=== PATIENT | male | born 1970 | race Caucasian/White ===

== ENCOUNTER 2021-09-27 11:50 | Inpatient (IN) ==
[2021-09-27 12:36] LABS: Basophils % 0.7 %
[2021-09-27 12:38] LABS: Eosinophils % 0.9 %; Hematocrit 35.9 % (37.5-50.1); Hemoglobin 12.9 g/dL (12.9-16.9); Immature Granulocytes % 0.5 % (0-4); Immature Platelets 2.3 % (1.1-6.1); Lymphocytes # 0.6 K/mcL (0.6-4.6); Lymphocytes % 14.3 %; Mean Corpuscular HGB Conc 35.9 g/dL (31.6-35.5); Mean Corpuscular Hemoglobin 34.9 pg (28.0-33.3); Mean Platelet Volume 10.1 fL (9.4-12.4); Monocytes # 0.5 K/mcL (0.0-1.3); Monocytes % 11.8 %; Neutrophils # 3.1 K/mcL (1.6-8.9); Red Cell Distribution Width 13.5 % (11.5-14.5); Segmented Neutrophils % 71.8 %; White Blood Count 4.3 K/mcL (4.3-11.1)
[2021-09-27 12:42] LABS: Platelet Count 72 K/mcL (140-400)
[2021-09-27 12:48] LABS: Activated Partial Thrombo Time 39.7 Seconds (26.0-36.0)
[2021-09-27 12:56] LABS: Alanine Aminotransferase 22 Units/L (7-52); Albumin 2.6 g/dL (3.5-5.7); Albumin/Globulin Ratio 0.7 (1.1-2.2); Alkaline Phosphatase 120 Units/L (34-104); Aspartate Amino Transferase 32 Units/L (13-39); BUN/Creatinine Ratio 15 (6-26); Bilirubin,Direct 0.7 mg/dL (0.0-0.2); Bilirubin,Indirect 1.9 mg/dL (0.0-1.0); Bilirubin,Total 2.6 mg/dL (0.3-1.0); Blood Urea Nitrogen 13 mg/dL (6-20); Carbon Dioxide 27 mEq/L (23-29); Chloride 105 mEq/L (98-107); Creatine Kinase 43 Units/L (30-223); Ethanol < 10 mg/dL (Less than 10); Globulin 3.7 g/dL (2.4-3.5); Glucose 164 mg/dL (70-105); Osmolality,Calculated 288 (280-300); Sodium 137 mEq/L (136-145); Total Protein 6.3 g/dL (6.4-8.9); Troponin I < 0.03 ng/mL (< 0.04); eGFR For African Americans > 60 (> 60); eGFR For Non-African Americans > 60 (> 60)
[2021-09-27] MEDS ORDERED: Ringers Solution, Lactated 1,000 ML IVC ONE (13:06)
[2021-09-27 13:13] LABS: Bilirubin,Urine Negative (Negative); Blood,Urine Negative (Negative); Clarity,Urine Clear (Clear); Color,Urine Yellow (Yellow); Glucose,Urine (UA) Normal (Normal); Ketones,Urine Negative (Negative); Leukocyte Esterase,Urine Negative (Negative); Nitrite,Urine Negative (Negative); PH,Urine 6.5 pH Units (5.0-8.0); Protein,Urine Negative (Neg-Trace); Specific Gravity,Urine 1.021 (1.010-1.025)
[2021-09-27 13:20] LABS: INR 1.7
[2021-09-27] MEDS ORDERED: Isovue-370 500 ML BOTTLE IVP ONE (13:48)
[2021-09-27 13:53] LABS: Amphetamine Screen,Urine Negative ng/mL (Cutoff=1000); Barbiturate Screen,Urine Negative ng/mL (Cutoff=200); Benzodiazepines Screen,Urine Negative ng/mL (Cutoff=200); Cannabinoid Screen,Urine Negative ng/mL (Cutoff = 50); Cocaine Screen,Urine Negative ng/mL (Cutoff= 300); Opiate Screen,Urine Negative ng/mL (Cutoff=300); Phencyclidine Screen,Urine Negative ng/mL (Cutoff=25)
[2021-09-27] MEDS ORDERED: Ringers Solution, Lactated 500 ML IVC ONE ×2 (16:31→20:30)
[2021-09-27] MEDS ORDERED: Lactulose 200 GM, Sodium Chloride IRRigation 700 ML RC ONE (16:46)
[2021-09-27 19:11] LABS: Acetaminophen < 10 mcg/mL (10-20); Salicylate < 2.5 mg/dL (15.0-30.0); Valproate 19 mcg/mL (50-100)
[2021-09-27] MEDS ORDERED: Albumin 25% 25gram/100mL 25 GM/100 ML IV.SOLN IVPB ONE (20:17)
[2021-09-28 03:43] LABS: Hemoglobin 11.4 g/dL (12.9-16.9); Red Cell Distribution Width 13.2 % (11.5-14.5)
[2021-09-28 03:45] LABS: Basophils % 0.4 %; Eosinophils # 0.1 K/mcL (0.0-0.6); Eosinophils % 1.2 %; Hematocrit 31.7 % (37.5-50.1); Immature Granulocytes % 0.4 % (0-4); Immature Platelets 3.3 % (1.1-6.1); Lymphocytes # 1.8 K/mcL (0.6-4.6); Lymphocytes % 19.6 %; Mean Corpuscular Hemoglobin 35.5 pg (28.0-33.3); Mean Corpuscular Volume 98.8 fL (83.0-100.0); Monocytes # 1.2 K/mcL (0.0-1.3); Monocytes % 12.6 %; Red Blood Count 3.21 M/mcL (4.19-5.50); Segmented Neutrophils % 65.8 %; White Blood Count 9.2 K/mcL (4.3-11.1)
[2021-09-28 03:53] LABS: Alanine Aminotransferase 18 Units/L (7-52); Albumin 2.7 g/dL (3.5-5.7); Alkaline Phosphatase 91 Units/L (34-104); Aspartate Amino Transferase 26 Units/L (13-39); BUN/Creatinine Ratio 18 (6-26); Bilirubin,Total 2.9 mg/dL (0.3-1.0); Blood Urea Nitrogen 17 mg/dL (6-20); Calcium 9.2 mg/dL (8.6-10.3); Carbon Dioxide 28 mEq/L (23-29); Chloride 104 mEq/L (98-107); Glucose 119 mg/dL (70-105); Osmolality,Calculated 289 (280-300); Potassium 4.4 mEq/L (3.5-5.1); Sodium 138 mEq/L (136-145); Total Protein 5.7 g/dL (6.4-8.9); eGFR For African Americans > 60 (> 60); eGFR For Non-African Americans > 60 (> 60)
[2021-09-28 03:54] LABS: Albumin/Globulin Ratio 0.9 (1.1-2.2)
[2021-09-28 03:56] LABS: Neutrophils # 6.1 K/mcL (1.6-8.9); Platelet Count 62 K/mcL (140-400)
[2021-09-28] MEDS: *HR* Enoxaparin 40 MG/0.4 ML SYRINGE SQ SCH (05:14)
[2021-09-28 10:50] LABS: Thyroid Stimulating Hormone 1.018 mcIU/mL (0.340-5.600)
[2021-09-28] MEDS ORDERED: Lactulose Oral Soln 20 GM/30 ML UDC PO PRN (12:11)
[2021-09-28] MEDS ORDERED: Ondansetron ODT 4 MG TAB.RAPDIS PO PRN (12:11)
[2021-09-28] MEDS ORDERED: D5% in Water 1,000 ML IVC PRN (12:18)
[2021-09-28] MEDS ORDERED: Dextrose 4 GM Chewable Tablets PO PRN ×2 (12:18)
[2021-09-28] MEDS ORDERED: *HR* Dextrose 50 % in Water (Syg) 50 ML SYRINGE IVP PRN (12:18)
[2021-09-28] MEDS: Lactulose Oral Soln 20 GM/30 ML UDC PO SCH ×3 (12:42→20:51)
[2021-09-28] MEDS: Divalproex Sodium 125 MG Sprinkle Capsule (DR) PO SCH ×2 (12:42→20:51)
[2021-09-28] MEDS: Magnesium Oxide 400 MG TABLET PO SCH ×2 (15:17→20:51)
[2021-09-28] MEDS: Insulin LISPRO 300 UNITS/3 ML VIAL SUBQ SCH ×2 (15:43→21:12)
[2021-09-28] MEDS: polyethylene glycoL 3350 17 GM POWD.PACK PO SCH (20:52)
[2021-09-28] MEDS ORDERED: Insulin DETEMIR 100 UNIT/ML X5UNITS SUBQ SCH (21:00)
[2021-09-29] MEDS: *HR* Enoxaparin 40 MG/0.4 ML SYRINGE SQ SCH (05:25)
[2021-09-29 06:15] LABS: Immature Granulocytes % 0.2 % (0-4)
[2021-09-29 06:17] LABS: Basophils % 0.9 %; Eosinophils # 0.2 K/mcL (0.0-0.6); Eosinophils % 3.5 %; Hematocrit 33.2 % (37.5-50.1); Hemoglobin 11.6 g/dL (12.9-16.9); Immature Platelets 3.6 % (1.1-6.1); Lymphocytes # 1.8 K/mcL (0.6-4.6); Mean Corpuscular HGB Conc 34.9 g/dL (31.6-35.5); Mean Corpuscular Hemoglobin 35.2 pg (28.0-33.3); Mean Corpuscular Volume 100.6 fL (83.0-100.0); Mean Platelet Volume 10.6 fL (9.4-12.4); Monocytes # 0.7 K/mcL (0.0-1.3); Monocytes % 16.3 %; Neutrophils # 1.8 K/mcL (1.6-8.9); Red Cell Distribution Width 13.5 % (11.5-14.5); Segmented Neutrophils % 39.1 %; White Blood Count 4.5 K/mcL (4.3-11.1)
[2021-09-29 06:19] LABS: Platelet Count 56 K/mcL (140-400)
[2021-09-29 06:22] LABS: INR 1.7; Prothrombin Time 19.3 Seconds (9.4-12.1)
[2021-09-29 06:44] LABS: Alanine Aminotransferase 17 Units/L (7-52); Albumin 2.7 g/dL (3.5-5.7); Albumin/Globulin Ratio 0.9 (1.1-2.2); Alkaline Phosphatase 93 Units/L (34-104); Aspartate Amino Transferase 27 Units/L (13-39); BUN/Creatinine Ratio 19 (6-26); Bilirubin,Total 2.2 mg/dL (0.3-1.0); Blood Urea Nitrogen 14 mg/dL (6-20); Calcium 9.1 mg/dL (8.6-10.3); Carbon Dioxide 30 mEq/L (23-29); Chloride 106 mEq/L (98-107); Glucose 64 mg/dL (70-105); Magnesium 1.4 mg/dL (1.6-2.6); Osmolality,Calculated 289 (280-300); Sodium 140 mEq/L (136-145); Total Protein 5.7 g/dL (6.4-8.9); eGFR For African Americans > 60 (> 60); eGFR For Non-African Americans > 60 (> 60)
[2021-09-29] MEDS: Insulin LISPRO 300 UNITS/3 ML VIAL SUBQ SCH ×4 (07:46→20:45)
[2021-09-29] MEDS: Furosemide 20 MG TABLET PO SCH (10:29)
[2021-09-29] MEDS: polyethylene glycoL 3350 17 GM POWD.PACK PO SCH ×2 (10:29→20:54)
[2021-09-29] MEDS: Divalproex Sodium 125 MG Sprinkle Capsule (DR) PO SCH ×2 (10:29→20:49)
[2021-09-29] MEDS: Magnesium Oxide 400 MG TABLET PO SCH ×3 (10:29→20:49)
[2021-09-29] MEDS: Lactulose Oral Soln 20 GM/30 ML UDC PO SCH ×4 (10:29→20:49)
[2021-09-29] MEDS: FLUoxetine 20 MG CAPSULE PO SCH (10:29)
[2021-09-30 05:24] LABS: Eosinophils % 6.2 %; Hematocrit 32.9 % (37.5-50.1); Hemoglobin 11.6 g/dL (12.9-16.9); Immature Granulocytes % 0.5 % (0-4); Immature Platelets 2.5 % (1.1-6.1); Lymphocytes % 36.8 %; Mean Corpuscular HGB Conc 35.3 g/dL (31.6-35.5); Mean Corpuscular Hemoglobin 34.7 pg (28.0-33.3); Mean Corpuscular Volume 98.5 fL (83.0-100.0); Mean Platelet Volume 10.6 fL (9.4-12.4); Monocytes % 17.6 %; Red Blood Count 3.34 M/mcL (4.19-5.50); Red Cell Distribution Width 13.4 % (11.5-14.5); Segmented Neutrophils % 38.2 %; White Blood Count 4.2 K/mcL (4.3-11.1)
[2021-09-30] MEDS: *HR* Enoxaparin 40 MG/0.4 ML SYRINGE SQ SCH (05:24)
[2021-09-30 05:25] LABS: Basophils % 0.7 %; Eosinophils # 0.3 K/mcL (0.0-0.6); Lymphocytes # 1.6 K/mcL (0.6-4.6); Monocytes # 0.7 K/mcL (0.0-1.3); Neutrophils # 1.6 K/mcL (1.6-8.9)
[2021-09-30 05:32] LABS: INR 1.7; Prothrombin Time 18.5 Seconds (9.4-12.1)
[2021-09-30 05:33] LABS: Platelet Count 55 K/mcL (140-400)
[2021-09-30 05:34] LABS: Platelet Estimate Decreased (Normal)
[2021-09-30 05:43] LABS: Alanine Aminotransferase 18 Units/L (7-52); Albumin 2.5 g/dL (3.5-5.7); Albumin/Globulin Ratio 0.8 (1.1-2.2); Alkaline Phosphatase 111 Units/L (34-104); Aspartate Amino Transferase 28 Units/L (13-39); BUN/Creatinine Ratio 14 (6-26); Bilirubin,Total 1.8 mg/dL (0.3-1.0); Blood Urea Nitrogen 9 mg/dL (6-20); Carbon Dioxide 30 mEq/L (23-29); Chloride 106 mEq/L (98-107); Globulin 3.2 g/dL (2.4-3.5); Glucose 176 mg/dL (70-105); Magnesium 1.5 mg/dL (1.6-2.6); Osmolality,Calculated 289 (280-300); Potassium 4.3 mEq/L (3.5-5.1); Sodium 138 mEq/L (136-145); Total Protein 5.7 g/dL (6.4-8.9); eGFR For African Americans > 60 (> 60); eGFR For Non-African Americans > 60 (> 60)
[2021-09-30] MEDS: Insulin LISPRO 300 UNITS/3 ML VIAL SUBQ SCH ×4 (07:53→20:14)
[2021-09-30] MEDS: Lactulose Oral Soln 20 GM/30 ML UDC PO SCH ×4 (08:21→20:14)
[2021-09-30] MEDS: Magnesium Oxide 400 MG TABLET PO SCH ×3 (08:21→20:14)
[2021-09-30] MEDS: polyethylene glycoL 3350 17 GM POWD.PACK PO SCH ×2 (08:21→20:15)
[2021-09-30] MEDS: Divalproex Sodium 125 MG Sprinkle Capsule (DR) PO SCH (08:22)
[2021-09-30] MEDS: Furosemide 20 MG TABLET PO SCH (08:22)
[2021-09-30] MEDS: FLUoxetine 20 MG CAPSULE PO SCH (08:22)
[2021-10-01 01:14] LABS: Eosinophils % 7.1 %; Immature Granulocytes % 0.2 % (0-4); Mean Corpuscular HGB Conc 35.1 g/dL (31.6-35.5)
[2021-10-01 01:16] LABS: Basophils % 0.7 %; Eosinophils # 0.3 K/mcL (0.0-0.6); Hematocrit 34.8 % (37.5-50.1); Hemoglobin 12.2 g/dL (12.9-16.9); Lymphocytes # 1.6 K/mcL (0.6-4.6); Lymphocytes % 34.5 %; Mean Corpuscular Hemoglobin 34.9 pg (28.0-33.3); Mean Corpuscular Volume 99.4 fL (83.0-100.0); Mean Platelet Volume 10.4 fL (9.4-12.4); Monocytes # 0.7 K/mcL (0.0-1.3); Monocytes % 16.5 %; Red Cell Distribution Width 13.4 % (11.5-14.5); White Blood Count 4.5 K/mcL (4.3-11.1)
[2021-10-01 01:21] LABS: INR 1.7; Prothrombin Time 18.7 Seconds (9.4-12.1)
[2021-10-01 01:34] LABS: Alanine Aminotransferase 20 Units/L (7-52); Albumin 2.7 g/dL (3.5-5.7); Albumin/Globulin Ratio 0.8 (1.1-2.2); Alkaline Phosphatase 126 Units/L (34-104); Aspartate Amino Transferase 30 Units/L (13-39); BUN/Creatinine Ratio 11 (6-26); Bilirubin,Total 1.9 mg/dL (0.3-1.0); Blood Urea Nitrogen 8 mg/dL (6-20); Calcium 9.2 mg/dL (8.6-10.3); Carbon Dioxide 29 mEq/L (23-29); Chloride 103 mEq/L (98-107); Globulin 3.4 g/dL (2.4-3.5); Glucose 245 mg/dL (70-105); Magnesium 1.4 mg/dL (1.6-2.6); Osmolality,Calculated 290 (280-300); Sodium 137 mEq/L (136-145); Total Protein 6.1 g/dL (6.4-8.9); eGFR For African Americans > 60 (> 60); eGFR For Non-African Americans > 60 (> 60)
[2021-10-01 01:56] LABS: Neutrophils # 1.9 K/mcL (1.6-8.9); Platelet Count 67 K/mcL (140-400)
[2021-10-01] MEDS: *HR* Enoxaparin 40 MG/0.4 ML SYRINGE SQ SCH (05:26)
[2021-10-01] MEDS: Insulin LISPRO 300 UNITS/3 ML VIAL SUBQ SCH ×4 (08:13→21:41)
[2021-10-01] MEDS: Lactulose Oral Soln 20 GM/30 ML UDC PO SCH ×4 (08:13→21:45)
[2021-10-01] MEDS: polyethylene glycoL 3350 17 GM POWD.PACK PO SCH ×2 (08:14→21:46)
[2021-10-01] MEDS: Furosemide 20 MG TABLET PO SCH (08:14)
[2021-10-01] MEDS: Magnesium Oxide 400 MG TABLET PO SCH ×3 (08:14→21:46)
[2021-10-01] MEDS: FLUoxetine HCl 10 MG CAPSULE PO SCH (08:36)
[2021-10-01] MEDS ORDERED: Lactulose 200 GM, Sodium Chloride IRRigation 700 ML RC ONE (10:54)
[2021-10-02 01:15] LABS: Immature Granulocytes % 0.2 % (0-4); Red Cell Distribution Width 13.6 % (11.5-14.5)
[2021-10-02 01:17] LABS: Basophils % 0.6 %; Eosinophils # 0.5 K/mcL (0.0-0.6); Eosinophils % 9.9 %; Hematocrit 38.4 % (37.5-50.1); Hemoglobin 13.6 g/dL (12.9-16.9); Immature Platelets 5.2 % (1.1-6.1); Lymphocytes # 1.5 K/mcL (0.6-4.6); Lymphocytes % 32.3 %; Mean Corpuscular HGB Conc 35.4 g/dL (31.6-35.5); Mean Corpuscular Hemoglobin 34.9 pg (28.0-33.3); Mean Corpuscular Volume 98.5 fL (83.0-100.0); Monocytes # 0.8 K/mcL (0.0-1.3); Monocytes % 16.1 %; Neutrophils # 1.9 K/mcL (1.6-8.9); Segmented Neutrophils % 40.9 %; White Blood Count 4.7 K/mcL (4.3-11.1)
[2021-10-02 01:19] LABS: Platelet Count 55 K/mcL (140-400)
[2021-10-02 01:25] LABS: INR 1.6; Prothrombin Time 18.2 Seconds (9.4-12.1)
[2021-10-02 01:33] LABS: Alanine Aminotransferase 25 Units/L (7-52); Albumin 2.9 g/dL (3.5-5.7); Albumin/Globulin Ratio 0.8 (1.1-2.2); Alkaline Phosphatase 145 Units/L (34-104); Aspartate Amino Transferase 36 Units/L (13-39); BUN/Creatinine Ratio 8 (6-26); Bilirubin,Total 2.3 mg/dL (0.3-1.0); Blood Urea Nitrogen 6 mg/dL (6-20); Calcium 9.5 mg/dL (8.6-10.3); Carbon Dioxide 26 mEq/L (23-29); Chloride 102 mEq/L (98-107); Globulin 3.7 g/dL (2.4-3.5); Glucose 278 mg/dL (70-105); Magnesium 1.5 mg/dL (1.6-2.6); Osmolality,Calculated 286 (280-300); Potassium 4.1 mEq/L (3.5-5.1); Sodium 134 mEq/L (136-145); Total Protein 6.6 g/dL (6.4-8.9); eGFR For African Americans > 60 (> 60); eGFR For Non-African Americans > 60 (> 60)
[2021-10-02] MEDS: *HR* Enoxaparin 40 MG/0.4 ML SYRINGE SQ SCH (06:39)
[2021-10-02] MEDS: Lactulose Oral Soln 20 GM/30 ML UDC PO SCH ×4 (07:17→19:57)
[2021-10-02] MEDS: FLUoxetine HCl 10 MG CAPSULE PO SCH (07:17)
[2021-10-02] MEDS: Furosemide 20 MG TABLET PO SCH (07:17)
[2021-10-02] MEDS: Magnesium Oxide 400 MG TABLET PO SCH ×3 (07:18→19:58)
[2021-10-02] MEDS: Insulin LISPRO 300 UNITS/3 ML VIAL SUBQ SCH ×4 (07:18→19:50)
[2021-10-02] MEDS: polyethylene glycoL 3350 17 GM POWD.PACK PO SCH ×2 (07:18→19:58)
[2021-10-03 04:54] LABS: Hemoglobin 12.5 g/dL (12.9-16.9); Immature Granulocytes % 0.4 % (0-4)
[2021-10-03 04:56] LABS: Basophils # 0.1 K/mcL (0.0-0.2); Basophils % 0.9 %; Eosinophils # 0.5 K/mcL (0.0-0.6); Eosinophils % 8.9 %; Hematocrit 35.3 % (37.5-50.1); Immature Platelets 2.8 % (1.1-6.1); Lymphocytes # 2.1 K/mcL (0.6-4.6); Lymphocytes % 37.5 %; Mean Corpuscular HGB Conc 35.4 g/dL (31.6-35.5); Mean Corpuscular Hemoglobin 34.4 pg (28.0-33.3); Mean Corpuscular Volume 97.2 fL (83.0-100.0); Mean Platelet Volume 10.3 fL (9.4-12.4); Monocytes % 17.8 %; Red Blood Count 3.63 M/mcL (4.19-5.50); Segmented Neutrophils % 34.5 %; White Blood Count 5.6 K/mcL (4.3-11.1)
[2021-10-03 04:58] LABS: Neutrophils # 1.9 K/mcL (1.6-8.9); Platelet Count 69 K/mcL (140-400)
[2021-10-03 05:04] LABS: INR 1.7; Prothrombin Time 19.4 Seconds (9.4-12.1)
[2021-10-03 05:13] LABS: Alanine Aminotransferase 26 Units/L (7-52); Albumin 2.6 g/dL (3.5-5.7); Albumin/Globulin Ratio 0.8 (1.1-2.2); Alkaline Phosphatase 123 Units/L (34-104); Aspartate Amino Transferase 34 Units/L (13-39); BUN/Creatinine Ratio 9 (6-26); Bilirubin,Total 2.7 mg/dL (0.3-1.0); Blood Urea Nitrogen 7 mg/dL (6-20); Carbon Dioxide 29 mEq/L (23-29); Chloride 103 mEq/L (98-107); Globulin 3.4 g/dL (2.4-3.5); Glucose 183 mg/dL (70-105); Magnesium 1.5 mg/dL (1.6-2.6); Osmolality,Calculated 283 (280-300); Potassium 4.3 mEq/L (3.5-5.1); Sodium 135 mEq/L (136-145); eGFR For African Americans > 60 (> 60); eGFR For Non-African Americans > 60 (> 60)
[2021-10-03] MEDS: *HR* Enoxaparin 40 MG/0.4 ML SYRINGE SQ SCH (05:14)
[2021-10-03] MEDS: Lactulose Oral Soln 20 GM/30 ML UDC PO SCH ×4 (09:04→20:22)
[2021-10-03] MEDS: polyethylene glycoL 3350 17 GM POWD.PACK PO SCH ×2 (09:06→20:22)
[2021-10-03] MEDS: Magnesium Oxide 400 MG TABLET PO SCH ×3 (09:06→20:22)
[2021-10-03] MEDS: FLUoxetine HCl 10 MG CAPSULE PO SCH (09:06)
[2021-10-03] MEDS: Furosemide 20 MG TABLET PO SCH (09:06)
[2021-10-03] MEDS: Insulin LISPRO 300 UNITS/3 ML VIAL SUBQ SCH ×4 (09:07→20:20)
[2021-10-03] MEDS ORDERED: Lactulose 200 GM, Sodium Chloride IRRigation 700 ML RC ONE (09:34)
[2021-10-04] MEDS: *HR* Enoxaparin 40 MG/0.4 ML SYRINGE SQ SCH (05:25)
[2021-10-04 05:49] LABS: Segmented Neutrophils % 45.3 %
[2021-10-04 05:51] LABS: Basophils # 0.1 K/mcL (0.0-0.2); Basophils % 0.9 %; Eosinophils # 0.4 K/mcL (0.0-0.6); Eosinophils % 7.8 %; Hematocrit 35.7 % (37.5-50.1); Hemoglobin 12.5 g/dL (12.9-16.9); Immature Granulocytes % 0.2 % (0-4); Immature Platelets 3.1 % (1.1-6.1); Lymphocytes # 1.4 K/mcL (0.6-4.6); Lymphocytes % 26.7 %; Mean Corpuscular Hemoglobin 34.7 pg (28.0-33.3); Mean Corpuscular Volume 99.2 fL (83.0-100.0); Monocytes % 19.1 %; White Blood Count 5.4 K/mcL (4.3-11.1)
[2021-10-04 05:53] LABS: Neutrophils # 2.5 K/mcL (1.6-8.9); Platelet Count 61 K/mcL (140-400)
[2021-10-04 06:11] LABS: Alanine Aminotransferase 25 Units/L (7-52); Albumin 2.6 g/dL (3.5-5.7); Albumin/Globulin Ratio 0.8 (1.1-2.2); Alkaline Phosphatase 145 Units/L (34-104); Aspartate Amino Transferase 34 Units/L (13-39); BUN/Creatinine Ratio 11 (6-26); Bilirubin,Total 2.5 mg/dL (0.3-1.0); Blood Urea Nitrogen 9 mg/dL (6-20); Calcium 9.2 mg/dL (8.6-10.3); Carbon Dioxide 28 mEq/L (23-29); Chloride 102 mEq/L (98-107); Globulin 3.3 g/dL (2.4-3.5); Glucose 251 mg/dL (70-105); Osmolality,Calculated 285 (280-300); Potassium 4.3 mEq/L (3.5-5.1); Sodium 134 mEq/L (136-145); Total Protein 5.9 g/dL (6.4-8.9); eGFR For African Americans > 60 (> 60); eGFR For Non-African Americans > 60 (> 60)
[2021-10-04] MEDS: FLUoxetine HCl 10 MG CAPSULE PO SCH (09:22)
[2021-10-04] MEDS: polyethylene glycoL 3350 17 GM POWD.PACK PO SCH (09:23)
[2021-10-04] MEDS: Furosemide 20 MG TABLET PO SCH (09:23)
[2021-10-04] MEDS: Lactulose Oral Soln 20 GM/30 ML UDC PO SCH ×2 (09:23→15:08)
[2021-10-04] MEDS: Insulin LISPRO 300 UNITS/3 ML VIAL SUBQ SCH ×2 (09:23→14:20)
[2021-10-04] MEDS: Magnesium Oxide 400 MG TABLET PO SCH ×2 (09:23→15:08)
[2021-10-04 10:43] VITALS: BP 115/75; PULSE 59; TEMP 97.8; O2SAT 97
== END 2021-10-04 15:37 | disposition home or self-care (01) | DRG 432 ==
LOC: 2NENU 11:50 → EMEROOARM 11:50 → SUATTDRO 15:58 → 2NENU 17:51
PROVIDERS: ADMIT Internal Medicine; ATTEND Family Medicine